=== PATIENT | female | born 1940 | race Two or more races ===

== ENCOUNTER → 2018-08-30 | Outpatient (CLI) | payer MEDICARE, OTHER ==
--- NOTE | 2018-08-30 13:00 | PN ---
Date/Time of Note Date/Time of Note DATE: 08/30/18 TIME: 12:56 Assessment/Plan VTE Prophylaxis Pharmacological prophylaxis: other Assessment/Plan Assessment/Plan 77-year-old female with osteoarthritis of her left knee mainly involving the patellofemoral joint. She has a right knee replacement that is doing well. At this time, treatment options are physical therapy, medications, knee injections. There is no indication for knee replacement at this time. A Monovisc injection was completed today and the patient will follow-up in 6 months. Procedure note: Using sterile precautions, the left knee was injected with 4 mL of Monovisc. The patient tolerated the procedure well. She is advised to use ice and limit her activities for the next 48-72 hours. Subjective 24 Hr Interval Summary Free Text/Dictation 77-year-old female with osteoarthritis of her left knee. His left knee pain over the past several weeks. She has had a cortisone injection by a grill attendant recently with no significant relief. She has a right knee replacement that was done a few years ago and has occasional pain in the right knee as well. She does have other joint pains and is being treated by the grill attendant. She had an MRI of her left knee that was done about 10 days ago and she is here for further management. There is no history of trauma, fever or chills. Exam/Review of Systems Exam Vitals Vital signs are stable, patient is afebrile, blood pressure 114/63, temperature 98.4, pulse rate is 78 and respiration 12 Exam Examination shows a pleasant female. She is awake alert and oriented. The left knee shows mild swelling. There is medial joint line tenderness. Range of motion is 0-120 degrees with crepitus. Patellofemoral tenderness is noted as well. There is no instability and no neurovascular deficit. Right knee has a healed incision of total knee replacement. Both knees have normal alignment. MRI of the left knee from 08/19/2018 was reviewed and shows no evidence of ligament or meniscus tears. There is evidence of severe patellofemoral arthritis. There is no evidence of fracture DANA DUFFY Aug 30, 2018 13:00
== END | disposition home or self-care (01) ==
LOC: HKI 13:05
PROVIDERS: ATTEND Orthopaedic Surgery
DX: M17.12 Unilateral primary osteoarthritis, left knee (principal)
CPT/HCPCS: 20610; G0463; J7327